=== PATIENT | female | born 1995 | race Hispanic/Latino ===

== ENCOUNTER 2022-04-11 22:27 | Emergency (ER) | payer OTHER ==
[~2022-04-11] VITALS: Ht 162.6 cm; Wt 94.3 kg
[2022-04-11] MEDS ORDERED: KETOROLAC 60 MG VIAL (30MG/ML) IM ONE (23:00)
[2022-04-11] MEDS ORDERED: CYCLOBENZAPRINE HCL 10 MG TABLET PO ONE (23:00)
[2022-04-11 23:29] VITALS: BP 117/79
[2022-04-11] MEDS ORDERED: CYCL10TA16 PO (23:39)
[2022-04-11] MEDS ORDERED: NAPR-1180 PO (23:39)
== END 2022-04-12 00:06 | disposition home or self-care (01) ==
LOC: EDH 22:27
DX: S20.219A Contusion of unspecified front wall of thorax, initial encounter (principal); E11.9 Type 2 diabetes mellitus without complications; E66.9 Obesity, unspecified; Z68.35 Body mass index [BMI] 35.0-35.9, adult; Z79.1 Long term (current) use of non-steroidal anti-inflammatories (NSAID); X58.XXXA Exposure to other specified factors, initial encounter; Y93.89 Activity, other specified; Y92.89 Other specified places as the place of occurrence of the external cause; Y99.8 Other external cause status
CPT/HCPCS: 71045; 81025; 96372; 99284; J1885

== ENCOUNTER 2022-06-03 13:20 | Emergency (ER) | payer OTHER ==
[~2022-06-03] VITALS: Ht 162.6 cm; Wt 94.8 kg
[~2022-06-03 13:20] MED LIST: CYCL10TA16 PO; NAPR-1180 PO
[2022-06-03 14:12] LABS: APPEARANCE,URINE CLEAR (CLEAR); BILIRUBIN,URINE NEGATIVE (NEGATIVE); COLOR,URINE STRAW (YELLOW); GLUCOSE, URINE (UA) >=1000 mg/dL (NEGATIVE); KETONES,URINE NEGATIVE (NEGATIVE); LEUKOCYTE ESTERASE ,URINE NEGATIVE (NEGATIVE); NITRATE,URINE NEGATIVE (NEGATIVE); OCCULT BLOOD,URINE NEGATIVE (NEGATIVE); PROTEIN,URINE NEGATIVE (NEGATIVE); UROBILINOGEN,URINE 0.2 mg/dL (0.2-1.0)
[2022-06-03 14:19] LABS: HCG,QUALITATIVE URINE NEGATIVE (NEGATIVE)
[2022-06-03 14:35] LABS: BACTERIA,URINE Rare /HPF (None Seen); RBC,URINE 0-1 /HPF (0-1); SQUAMOUS EPITHELIAL CELL,UR Rare /HPF (0-2); WBC,URINE 0-1 /HPF (0-1)
[2022-06-03 14:42] VITALS: BP 124/80
[2022-06-03 15:30] LABS: BASOPHILS % (AUTO) 0.2 % (0.0-5.0); EOSINOPHILS % (AUTO) 0.5 % (0.0-8.0); HEMATOCRIT 39.8 % (36-48); LYMPHOCYTES % (AUTO) 18.3 % (21.0-51.0); MEAN CORPUSCULAR HEMOGLOBIN 30.4 pg (27.0-33.0); MEAN CORPUSCULAR HGB CONC 34.2 g/dL (32.0-36.0); MEAN CORPUSCULAR VOLUME 88.8 fL (79-99); MONOCYTES % (AUTO) 4.5 % (3.0-13.0); NEUTROPHILS % (AUTO) 76.2 % (40.0-77.0); PLATELET COUNT (AUTO) 232 K/uL (130-400); RED BLOOD CELL COUNT(AUTO) 4.48 MIL/uL (4.00-5.50); RED CELL DISTRIBUTION WIDTH 12.6 % (11.0-15.5); WHITE BLOOD COUNT (AUTO) 10.3 K/uL (4.8-10.8)
[2022-06-03 15:43] LABS: CREATININE 0.7 mg/dL (0.5-1.5); POTASSIUM 3.9 mmol/L (3.5-5.1)
[2022-06-03 15:47] LABS: ALBUMIN 3.7 g/dL (3.5-5.0); TOTAL PROTEIN, SERUM 7.9 g/dL (6.0-8.3)
== END 2022-06-03 16:17 | disposition home or self-care (01) ==
LOC: EDH 13:20
DX: E11.65 Type 2 diabetes mellitus with hyperglycemia (principal); R10.30 Lower abdominal pain, unspecified; R19.7 Diarrhea, unspecified; E66.9 Obesity, unspecified; Z79.1 Long term (current) use of non-steroidal anti-inflammatories (NSAID); Z68.35 Body mass index [BMI] 35.0-35.9, adult
CPT/HCPCS: 36415; 80053; 81001; 81025; 85025

== ENCOUNTER 2022-08-05 16:14 | Emergency (ER) | payer OTHER ==
[~2022-08-05] VITALS: Ht 162.6 cm; Wt 93.0 kg
[2022-08-05 16:15] VITALS: BP 121/75
[2022-08-05 17:00] LABS: HCG,QUALITATIVE URINE POSITIVE (NEGATIVE)
[2022-08-05 17:06] LABS: APPEARANCE,URINE CLEAR (CLEAR); BILIRUBIN,URINE NEGATIVE (NEGATIVE); COLOR,URINE YELLOW (YELLOW); GLUCOSE, URINE (UA) >=1000 mg/dL (NEGATIVE); KETONES,URINE 15 mg/dL (NEGATIVE); LEUKOCYTE ESTERASE ,URINE NEGATIVE Leu/uL (NEGATIVE); NITRATE,URINE NEGATIVE (NEGATIVE); OCCULT BLOOD,URINE NEGATIVE (NEGATIVE); PROTEIN,URINE NEGATIVE (NEGATIVE); UROBILINOGEN,URINE 0.2 mg/dL (0.2-1.0)
[2022-08-05 17:14] LABS: BACTERIA,URINE Rare /HPF (None Seen); MUCUS,URINE Rare LPF (None Seen); RBC,URINE 0-1 /HPF (0-1); SQUAMOUS EPITHELIAL CELL,UR Rare /HPF (0-2); WBC,URINE 0-1 /HPF (0-1)
[2022-08-05 18:15] LABS: BASOPHILS % (AUTO) 0.3 % (0.0-5.0); EOSINOPHILS % (AUTO) 0.8 % (0.0-8.0); HEMATOCRIT 40.3 % (36-48); LYMPHOCYTES % (AUTO) 28.5 % (21.0-51.0); MEAN CORPUSCULAR HEMOGLOBIN 30.3 pg (27.0-33.0); MEAN CORPUSCULAR HGB CONC 34.2 g/dL (32.0-36.0); MEAN CORPUSCULAR VOLUME 88.6 fL (79-99); MONOCYTES % (AUTO) 4.8 % (3.0-13.0); NEUTROPHILS % (AUTO) 65.3 % (40.0-77.0); PLATELET COUNT (AUTO) 243 K/uL (130-400); RED BLOOD CELL COUNT(AUTO) 4.55 MIL/uL (4.00-5.50); RED CELL DISTRIBUTION WIDTH 12.9 % (11.0-15.5); WHITE BLOOD COUNT (AUTO) 8.6 K/uL (4.8-10.8)
[2022-08-05 18:30] LABS: CREATININE 0.7 mg/dL (0.5-1.5)
[2022-08-05 18:34] LABS: TOTAL PROTEIN, SERUM 8.6 g/dL (6.0-8.3)
== END 2022-08-05 20:18 | disposition home or self-care (01) ==
LOC: EDH 16:14
DX: O20.9 Hemorrhage in early pregnancy, unspecified (principal); E11.9 Type 2 diabetes mellitus without complications; Z3A.01 Less than 8 weeks gestation of pregnancy
CPT/HCPCS: 36415; 76801; 80053; 81001; 81025; 84702; 84703; 85025; 86900; 86901

== ENCOUNTER 2022-09-30 12:01 | Emergency (ER) | payer OTHER ==
[~2022-09-30] VITALS: Ht 162.6 cm; Wt 101.2 kg
[2022-09-30 12:05] VITALS: BP 126/69
[2022-09-30 13:42] LABS: APPEARANCE,URINE CLEAR (CLEAR); BILIRUBIN,URINE NEGATIVE (NEGATIVE); COLOR,URINE LIGHT-YELLOW (YELLOW); GLUCOSE, URINE (UA) TRACE mg/dL (NEGATIVE); KETONES,URINE NEGATIVE (NEGATIVE); LEUKOCYTE ESTERASE ,URINE NEGATIVE Leu/uL (NEGATIVE); NITRATE,URINE NEGATIVE (NEGATIVE); OCCULT BLOOD,URINE NEGATIVE (NEGATIVE); PH,URINE 5.5 (5.0-8.0); PROTEIN,URINE NEGATIVE (NEGATIVE); UROBILINOGEN,URINE 0.2 mg/dL (0.2-1.0)
[2022-09-30 14:08] LABS: MUCUS,URINE RARE LPF (None Seen); RBC,URINE 0-1 /HPF (0-1); SQUAMOUS EPITHELIAL CELL,UR RARE /HPF (0-2); WBC,URINE 0-1 /HPF (0-1)
== END 2022-09-30 15:12 | disposition home or self-care (01) ==
LOC: EDH 12:01
DX: O26.891 Other specified pregnancy related conditions, first trimester (principal); R10.9 Unspecified abdominal pain; Z3A.13 13 weeks gestation of pregnancy
CPT/HCPCS: 36415; 76801; 81001; 84703; 86900; 86901

== ENCOUNTER 2022-10-10 09:00 | Emergency (ER) | payer OTHER ==
[~2022-10-10] VITALS: Ht 162.6 cm; Wt 100.7 kg
[2022-10-10 09:04] VITALS: BP 119/76
[2022-10-10 11:31] LABS: BASOPHILS % (AUTO) 0.2 % (0.0-5.0); EOSINOPHILS % (AUTO) 1.2 % (0.0-8.0); HEMATOCRIT 34.2 % (36-48); LYMPHOCYTES % (AUTO) 23.3 % (21.0-51.0); MEAN CORPUSCULAR HEMOGLOBIN 30.2 pg (27.0-33.0); MEAN CORPUSCULAR HGB CONC 33.3 g/dL (32.0-36.0); MEAN CORPUSCULAR VOLUME 90.7 fL (79-99); MONOCYTES % (AUTO) 4.5 % (3.0-13.0); NEUTROPHILS % (AUTO) 70.3 % (40.0-77.0); PLATELET COUNT (AUTO) 240 K/uL (130-400); RED BLOOD CELL COUNT(AUTO) 3.77 MIL/uL (4.00-5.50); RED CELL DISTRIBUTION WIDTH 12.7 % (11.0-15.5); WHITE BLOOD COUNT (AUTO) 9.7 K/uL (4.8-10.8)
[2022-10-10 11:43] LABS: CREATININE 0.5 mg/dL (0.5-1.5); POTASSIUM 3.9 mmol/L (3.5-5.1)
[2022-10-10 11:47] LABS: ALBUMIN 3.1 g/dL (3.5-5.0); TOTAL PROTEIN, SERUM 7.5 g/dL (6.0-8.3)
[2022-10-10 14:04] LABS: APPEARANCE,URINE CLEAR (CLEAR); BILIRUBIN,URINE NEGATIVE (NEGATIVE); COLOR,URINE LIGHT-YELLOW (YELLOW); GLUCOSE, URINE (UA) NEGATIVE (NEGATIVE); KETONES,URINE NEGATIVE (NEGATIVE); LEUKOCYTE ESTERASE ,URINE NEGATIVE Leu/uL (NEGATIVE); NITRATE,URINE NEGATIVE (NEGATIVE); OCCULT BLOOD,URINE NEGATIVE (NEGATIVE); PH,URINE 5.5 (5.0-8.0); PROTEIN,URINE NEGATIVE (NEGATIVE); UROBILINOGEN,URINE 0.2 mg/dL (0.2-1.0)
== END 2022-10-10 14:24 | disposition home or self-care (01) ==
LOC: EDH 09:00
DX: O26.892 Other specified pregnancy related conditions, second trimester (principal); R10.30 Lower abdominal pain, unspecified; Z3A.15 15 weeks gestation of pregnancy
CPT/HCPCS: 36415; 76805; 80053; 81003; 84703; 85025